=== PATIENT | male | born 1960 | race Caucasian/White ===

== ENCOUNTER 2023-11-15 07:55 | Outpatient (REF) | payer OTHER, SELFPAY ==
[2023-11-15 08:09] LABS: MANUAL DIFF FLAG NO
[2023-11-15 08:23] LABS: Basophils Absolute Auto 0.1 X10*3/uL (0.0-0.2); Basophils Percent Auto 1.1 % (0-2); Eosinophils Absolute Auto 0.4 X10*3/uL (0.0-0.4); Eosinophils Percent Auto 7.1 % (0-4); Hematocrit 45.3 % (42.0-52.0); Hemoglobin 15.9 g/dl (14.0-18.0); Imm Gran Abs Auto 0.06 X10*3/uL (0.00-0.03); Imm Gran Pct Auto 1.1 % (0.0-0.4); Lymphocytes Absolute Auto 0.7 X10*3/uL (1.2-4.9); Lymphocytes Percent Auto 12.9 % (20-40); Mean Corpuscular HGB Conc 35.1 g/dl (31.0-36.0); Mean Corpuscular Hemoglobin 31.3 pg (27.0-33.0); Mean Corpuscular Volume 89.2 fL (80.0-98.0); Mean Platelet Volume 9.2 fL (9.4-12.4); Monocytes Absolute Auto 0.6 X10*3/uL (0.1-1.2); Monocytes Percent Auto 10.1 % (2-11); Neutrophils Absolute Auto 3.7 x10*3/uL (2.0-8.3); Neutrophils Percent Auto 67.7 % (45-73); Platelet Count 255 X10*3/uL (160-400); Red Blood Count 5.08 X10*6/uL (4.60-5.80); Red Cell Distribution Width 12.1 % (11.0-16.0); White Blood Count 5.5 X10*3/uL (4.8-10.8)
[2023-11-15 08:26] LABS: Estimated Average Glucose 123 mg/dL; Hemoglobin A1c % 5.9 % (<6.0)
[2023-11-15 08:55] LABS: Alanine Aminotransferase 18 U/L (0-40); Albumin Level 4.3 g/dL (3.5-5.0); Alkaline Phosphatase 66 U/L (39-117); Anion Gap 12 (12-20); Aspartate Amino Transferase 12 U/L (5-37); Bilirubin Total 0.3 mg/dL (0.0-1.0); Blood Urea Nitrogen 11 mg/dL (9-16); Calcium 9.5 mg/dL (8.4-10.2); Carbon Dioxide 32 mmol/L (22-29); Chloride 103 mmol/L (96-108); Cholesterol 114 mg/dL (<200); Estimated Glomerular Filt Rate > 60; Glucose Fasting 154 mg/dL (60-99); HDL Cholesterol 31 mg/dL (>40); LDL Cholesterol Calculated 66 mg/dL (<100); Magnesium 2.1 mg/dL (1.6-2.6); Sodium 143 mmol/L (135-145); Total Protein 6.8 g/dL (6.5-8.0); Triglycerides 89 mg/dL (<150)
[2023-11-15 09:06] LABS: HBS Num1 0.41 mIU/mL (0-7.99); HBc Num1 0.08 S/CO (0.00-0.79); HBsAGNum1 0.28 S/CO (0.00-0.99); HIV AB/AG Nonreactive (Nonreactive); HIV Num 1 0.06 S/CO (0.00-0.99); Hepatitis B Core Antibody Nonreactive (Nonreactive); Hepatitis B Surface Antigen Negative (Negative); ~HepC Num1 0.14 S/CO (0.00-0.79); ~Hepatitis B Surface Antibody NONREACTIVE (Nonreactive); ~Hepatitis C Antibody Nonreactive (Nonreactive)
[2023-11-15 09:11] LABS: Vitamin B12 248 pg/mL (200-900)
[2023-11-15 09:13] LABS: Free T4 (Free Thyroxine) 0.81 ng/dL (0.71-1.85); Thyroid Stimulating Hormone 1.02 uIU/mL (0.32-4.0); Vitamin D 25-OH Total 20.6 ng/mL (>30)
== END 2023-11-15 07:56 | disposition home or self-care (01) ==
LOC: HO.LAB 07:55
PROVIDERS: PCP Internal Medicine; Visit Provider Psychiatry & Neurology Psychiatry
DX: Z11.4 Encounter for screening for human immunodeficiency virus [HIV] (principal); F32.2 Major depressive disorder, single episode, severe without psychotic features; F19.20 Other psychoactive substance dependence, uncomplicated
CPT/HCPCS: 36415; 80053; 80061; 82306; 82607; 83036; 83735; 84439; 84443; 85025; 86704; 86706; 86803; 87340; 87389

== ENCOUNTER → 2023-11-22 10:15 | Outpatient (BNV) | payer OTHER, SELFPAY | PROVIDERS: Visit Provider Psychiatry & Neurology Psychiatry | DX: F32.89 Other specified depressive episodes (principal); F16.10 Hallucinogen abuse, uncomplicated; F41.8 Other specified anxiety disorders; F14.10 Cocaine abuse, uncomplicated | CPT/HCPCS: 90792; 99213 ==

== ENCOUNTER 2023-11-26 08:45 | Outpatient (RCR) | payer OTHER, SELFPAY ==
[2023-11-12 13:06] VITALS: BMI 28.4
[2023-11-12 13:08] VITALS: BP 131/81; PULSE 58; TEMP 36.7
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
--- NOTE | 2023-11-14 17:41 | HO.PHP ---
Client's case was opened and reviewed in treatment team.
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
--- NOTE | 2023-11-15 10:51 | HO.PHP ---
[facility] staff member sent a fax over to [facility] central intake with Keaton's referrals for Med Management and Case Management. [facility] staff member is awaiting a call from [facility] with the scheduled appointment dates and times.
--- NOTE | 2023-11-19 09:40 | HO.PHP ---
[facility] staff member followed up with Keaton due to him not showing up to program. Keaton disclosed that on his first day, he had informed the staff that he would not be able to attend due to a DrsJeanne appointment today. [facility] staff was receptive and assessed for risk. Keaton disclosed that he is safe and will be here tomorrow. [facility] staff was receptive.
--- NOTE | 2023-11-20 12:55 | HO.PHP ---
Late entry: [facility] staff member contacted Bridgette through [facility] to gather appointment dates and times for Keaton. Keaton's intake appointment is scheduled on December 02, 2023 at 10 AM at the [facility] Office with Hilda Anderson. Keaton's med management appointment is December 24, 2023 at 9 AM at the [facility] office with Amber Rebollar.
--- NOTE | 2023-11-22 21:49 | HO.PHPPROGNO ---
Subjective Subjective Date of Service: 11/22/23 Reason For Visit: bipolar Interim History: Patient seen for follow-up. He recently started on the duloxetine, denies any adverse effects. He doesn't know if it is a coincidence but has not been experiencing any pain since starting on the medication earlier in the week. He is still getting some muscle spasms and is amenable to increasing potassium intake (will eat more bananas) and Mg supplementation. He reports his mood is still depressed, but feels he is doing well, feeling more hopeful. He says he has been benefiting from the program. He denies any SI. Sleep and appetite are improving. Will plan to bump up dose of duloxetine tonight. Medication Compliance: Yes Side effects from medications: No Attending Groups: Yes Review of Systems Acute medical concerns: No Mental Status Exam Mental Status Exam Narrative: Alert, oriented, in no acute distress. Calm, cooperative, engaged. No psychomotor agitation or neurovegetative retardation. Eye contact maintained. Mood depressed, affect variable.. Speech normal. Thought process linear, coherent. Thought content related to stressors, denies hopelessness,SI or HI. No paranoia or delusional content elicited. No evidence of psychosis. Insight and judgment impaired. Diagnostics Vital Signs (24Hr): BMI result Body Mass Index 28.4 Assessment & Plan Assessment & Plan (1) Bipolar affect, depressed: Qualifiers: Current episode severity: unspecified Qualified Code(s): F31.30 - Bipolar disorder, current episode depressed, mild or moderate severity, unspecified Status: Inactive Code(s): F31.30 - Bipolar disorder, current episode depressed, mild or moderate severity, unspecified (2) Cocaine abuse: Status: Acute Code(s): F14.10 - Cocaine abuse, uncomplicated (3) Phencyclidine abuse: Status: Acute Code(s): F16.10 - Hallucinogen abuse, uncomplicated (4) Other specified anxiety disorders: Status: Acute Code(s): F41.8 - Other specified anxiety disorders Plan increase Cymbalta to 20 mg BID continue other regular medications will review lab work w patient next time - hyperglycemia w borderline HbA1c - will encourage lifestyle changes and further follow-up with primary care. HIV, Hep status negative mild vitamin D deficiency - will encourage patient to start 5000 IU qd vitamin D for 2 months, and then lower to 2000 IU qd continue to monitor Patient educated on: diagnosis, medication risk/benefits and substance abuse Informed Consent: understands Reason for contiued partial hosp. stay Substantial Risk for: inability to function, rapid decompensation and med/psych decompensation Certification I certify that partial hospital treatment is medically necessary due to the symptoms and problems resulting from the patient's mental illness and the failure to treat the patient at the partial hospital level of care would likely result in the patient requiring inpatient psychiatric care which could not be prevented at a less intensive level of care. Total time managing care of this patient today __30__ minutes. Discharge Plan Discharge Attending provider: Corie Calhoun Additional Instructions: Keaton's intake appointment is scheduled on December 02, 2023 at 10 AM at the [facility] Office with Hilda Anderson. Keaton's med management appointment is December 24, 2023 at 9 AM at the [facility] office with Amber Rebollar. Medications: New duloxetine 20 mg capsule,delayed release(DR/EC) 20 mg PO BID Qty: 20 0RF Changed nicotine (polacrilex) [Nicorette] 2 mg gum 2 mg buccal Q2H PRN (Reason: Nicotine Cravings) Qty: 100 0RF No Action atorvastatin 20 mg tablet 20 mg PO DAILY omeprazole 20 mg capsule,delayed release(DR/EC) 20 mg PO QAM Patient Comments: Educated patient about taking this medication in the morning 30 minutes prior to a meal as prescribed. hydroxyzine HCl 25 mg tablet 25 mg PO DAILY PRN (Reason: Anxiety) hydrochlorothiazide 25 mg tablet 25 mg PO DAILY Patient Comments: Patient stated he takes at night. Educated patient about taking this medication in the morning as prescribed. zolpidem 10 mg tablet 10 mg PO BEDTIME PRN (Reason: Insomnia) Stand Alone Forms: Patient Portal Discharge page
--- NOTE | 2023-11-25 16:25 | HO.PHP ---
At roughly 12:00, business writer met with pt to discuss extending his time at [facility] to work on more structure and supports. Pt reports he will not be able to stay past his discharge date due to upcoming appts. Pt would like to discharge as scheduled, Saturday11/26/23. Reports he has plans to go to a work training program that begins the following day, Saturday11/27/23, in [place], [place] at 8 am and says it will meet every Saturday or for several weeks. Pt reports he then has a network specialist appt on at 1pm to assess for his upcoming surgery which he says will be scheduled any day within the next 2 weeks, depending on the network specialist report. Pt also states he has a therapy appt on Nov.30 and an appt with his med provider on and other upcoming health appts that will be scheduled following the cardiology report so feels he needs to prepare himself and be available. Pt agreed he needs more structure and sobriety support but currently wants to focus on his upcoming surgery. Pt declined info to attend AA mtgs in the community, declined info on [facility] but was open to attending [facility] in person. Pt was provided with 2 in-person meeting times and locations and the contact info for [email or web address]. Pt reports he will try to attend. Pt encouraged to return to [facility] after his surgery should he begin to isolate, have increased sx of depression and/or need support to prevent relapse. Pt appreciative and agreed.
--- NOTE | 2023-11-26 23:03 | HO.PHPPROGNO ---
Subjective Subjective Date of Service: 11/26/23 Reason For Visit: bipolar Interim History: Patient seen for follow-up, he's completed PHP and will be discharged at the end of the program today. He reports groups have been great , he feels he gained from his experience here and has learned a lot. He reports feeling motivated...ready for the next step in my journey . He lists a number of tasks and appointments he has coming up. He will be going to some agency to get job training and is hoping to get his drivers license back. He reports having financial issues he needs to address. He reports taking the duloxetine 20 mg twice a day, every day. He denies any adverse effects and feels it is helping his mood. He reports his mood stability at a 6 out of 10, which improved from a 2 or 3 out of 10 on admission.He is aware he is still on a low dose of the duloxetine and should anticipate his provider further titrate the dose, especially if his depression and anxiety are not fully treated. He will be following up with a med provider at the end of the month. He denies any helplessness, hopelessness or SI. Denies any aggressive ideation or HI. He denies any alcohol or substance use. He denies any urges or cravings to use. Medication Compliance: Yes Side effects from medications: No Attending Groups: Yes Review of Systems Acute medical concerns: No Mental Status Exam Mental Status Exam Narrative: Alert, oriented, in no acute distress. Calm, cooperative, engaged. No psychomotor agitation or neurovegetative retardation. Eye contact maintained. Mood improved, affect variable, brighter.. Speech normal. Thought process linear, coherent. Thought content related to stressors, denies hopelessness or SI or HI. No paranoia or delusional content elicited. No evidence of psychosis. Insight and judgment impaired. Diagnostics Vital Signs (24Hr): BMI result Body Mass Index 28.4 Assessment & Plan Assessment & Plan (1) Depressive disorder, not elsewhere classified: Status: Acute Code(s): F32.89 - Other specified depressive episodes (2) Phencyclidine abuse: Status: Acute Code(s): F16.10 - Hallucinogen abuse, uncomplicated (3) Other specified anxiety disorders: Status: Acute Code(s): F41.8 - Other specified anxiety disorders (4) Cocaine abuse: Status: Acute Code(s): F14.10 - Cocaine abuse, uncomplicated Plan Discharge from [facility] continue current medications will defer further medication management to outpatient provider Lab work was reviewed Med provider appointment scheduled for Dec 24 Patient educated on: diagnosis, medication risk/benefits and substance abuse Informed Consent: understands Reason for contiued partial hosp. stay Substantial Risk for: stable for discharge Certification I certify that partial hospital treatment is medically necessary due to the symptoms and problems resulting from the patient's mental illness and the failure to treat the patient at the partial hospital level of care would likely result in the patient requiring inpatient psychiatric care which could not be prevented at a less intensive level of care. Total time managing care of this patient today _30___ minutes. Discharge Plan Discharge Attending provider: Corie Calhoun Additional Instructions: Keaton's intake appointment is scheduled on December 02, 2023 at 10 AM at the [facility] Office with Hilda Anderson. Keaton's med management appointment is December 24, 2023 at 9 AM at the [facility] office with Amber Rebollar. Medications: Continued atorvastatin 20 mg tablet 20 mg PO DAILY omeprazole 20 mg capsule,delayed release(DR/EC) 20 mg PO QAM Patient Comments: Educated patient about taking this medication in the morning 30 minutes prior to a meal as prescribed. hydroxyzine HCl 25 mg tablet 25 mg PO DAILY PRN (Reason: Anxiety) hydrochlorothiazide 25 mg tablet 25 mg PO DAILY Patient Comments: Patient stated he takes at night. Educated patient about taking this medication in the morning as prescribed. zolpidem 10 mg tablet 10 mg PO BEDTIME PRN (Reason: Insomnia) duloxetine 20 mg capsule,delayed release(DR/EC) 20 mg PO BID Qty: 28 0RF Changed nicotine (polacrilex) [Nicorette] 2 mg gum 2 mg buccal Q2H PRN (Reason: Nicotine Cravings) Qty: 100 0RF Stand Alone Forms: Patient Portal Discharge page
== END 2023-11-26 23:59 | disposition home or self-care (01) ==
LOC: HO.PHPA 08:45
PROVIDERS: Visit Provider Psychiatry & Neurology Psychiatry
DX: F41.8 Other specified anxiety disorders (principal); F31.30 Bipolar disorder, current episode depressed, mild or moderate severity, unspecified; F16.10 Hallucinogen abuse, uncomplicated; F14.10 Cocaine abuse, uncomplicated; Z79.899 Other long term (current) drug therapy
CPT/HCPCS: 90791; 90853

== ENCOUNTER 2024-04-08 09:19 | Outpatient (AMB) | payer OTHER, SELFPAY ==
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
[2024-04-08 09:23] VITALS: BP 122/70; PULSE 68; RESP 16; O2SAT 98; BMI 31.5
== END 2024-04-08 10:12 | disposition home or self-care (01) ==
PROVIDERS: PCP Internal Medicine; Visit Provider Psychiatry & Neurology Neurology
DX: R26.9 Unspecified abnormalities of gait and mobility (principal); R29.6 Repeated falls
CPT/HCPCS: 99204

== ENCOUNTER → 2024-04-08 09:19 | Outpatient (BNVA) | payer OTHER, SELFPAY | PROVIDERS: PCP Internal Medicine; Visit Provider Psychiatry & Neurology Neurology | DX: R26.9 Unspecified abnormalities of gait and mobility (principal); R29.6 Repeated falls | CPT/HCPCS: 99202 ==

== ENCOUNTER 2024-04-08 10:13 | Outpatient (REF) | payer OTHER, SELFPAY ==
[2024-04-08 19:24] LABS: TSH reflex Free T4 0.11 uIU/mL (0.32-4.0)
[2024-04-08 19:38] LABS: Folate 17.6 ng/mL (> or = 4.0); Vitamin B12 335 pg/mL (200-900)
[2024-04-08 20:10] LABS: Free T4 (Free Thyroxine) 0.98 ng/dL (0.71-1.85)
[2024-04-13 15:47] LABS: Vitamin D 25-OH, D2 <4 ng/mL; Vitamin D 25-OH, D3 14 ng/mL; Vitamin D 25-OH, Total 14 ng/mL (30-100)
== END 2024-04-08 10:14 | disposition home or self-care (01) ==
LOC: HO.HKASLDS 10:13
PROVIDERS: Visit Provider Psychiatry & Neurology Neurology
DX: R26.9 Unspecified abnormalities of gait and mobility (principal); R29.6 Repeated falls
CPT/HCPCS: 36415; 82306; 82607; 82746; 84439; 84443

== ENCOUNTER 2024-07-31 08:36 | Outpatient (REF) | payer OTHER, SELFPAY ==
--- NOTE | ~2024-07-31 | MR_ITS ---
EXAMINATION: MR BRAIN WITHOUT CONTRAST CLINICAL INFORMATION: Repeated falls. COMPARISON: None available. TECHNIQUE: MRI of the brain was obtained using routine sequences without contrast. FINDINGS: No focal restricted diffusion is demonstrated to suggest acute or subacute cerebral ischemia. No evidence of acute or chronic hemorrhagic products on heme-sensitive imaging. Scattered periventricular and deep white matter T2 FLAIR hyperintensities consistent with mild underlying microangiopathy. The ventricles are normal in morphology and size. No abnormal mass effect. No midline shift. Normal appearance of the pituitary gland. Normal positioning of the cerebellar tonsils. Normal arterial and venous vascular flow voids are present. Normal, homogeneous marrow signal. Moderate degenerative spondyloarthropathy of the visualized upper cervical spine. Mild mucosal thickening of the paranasal sinuses. Mild rightward nasal septal deviation. No signal abnormalities within the mastoids. MR/MR head/brain wo con IMPRESSION: 1. No acute intracranial abnormalities. 2. Mild underlying microangiopathy. Electronically signed by: Tariq Nunn DO 09/21/2024 09:19 AM JOSELUIS
== END 2024-07-31 08:37 | disposition home or self-care (01) ==
LOC: HO.MRI 08:36
PROVIDERS: PCP Internal Medicine; Visit Provider Psychiatry & Neurology Neurology
DX: R29.6 Repeated falls (principal); R26.9 Unspecified abnormalities of gait and mobility
CPT/HCPCS: 70551

== ENCOUNTER 2024-09-10 09:00 | Outpatient (RCR) | payer OTHER, SELFPAY ==
--- NOTE | 2024-07-30 15:51 | MHC.PT.EP ---
[facility] [place] Office [place] Office [place] Office [address] [place] [address] [phone] F: [phone] F: [phone] F: [phone] F: [phone] Physical Therapy Plan of Care Date of Evaluation: 07/30/24 Date of Surgery: n/a Diagnosis: unspecified abnormalities of gait and mobility Assessment: Patient is a 63 year old male presenting to PT with referral for abnormalities of gait and balance. Pt reports onset of pain began over 1 year ago due to insidious onset. He presents today with impairments in balance, strength, gait mechanics. Pt's current occupation is disabled, with baseline physical activities including ambulating, ADLs. 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 Clinical presentation today is most consistent with signs and sx associated with abnormalities of gait and balance and pt will benefit from skilled PT 2 week x 4 weeks to address the following problems and impairments noted upon evaluation: balance, strength, gait mechanics. These problems limit the patient with the following functional activities: ADLs, ambulating, stair negotiation. The prescribed treatment plan of care is medically necessary. Co-morbidities of T2DM, hx cancer were identified and taken into considerations of plan of care. Pt was educated on HEP, role of PT, prognosis, POC. Frequency and Duration: The patient will be seen 2 x week x 4 weeks Short Term Goals: Pt will demonstrate ability to perform tandem stance on foam with min to no sway in 2 weeks. Pt will demonstrate improved hip MMT strength by 1/3 grade in 2 weeks for improved lumbopelvic stability. Group Home Goals: Pt will demonstrate improved LEFI score by 9 points in 4 weeks for improved functional mobility. Pt will demonstrate improved DGI score by 3 points in 4 weeks for reduced risk of falls. Pt will demonstrate improved TUG score by 2 seconds in 4 weeks for reduced risk of falls. Treatment Plan: Modalities to reduce pain, spasms and effusion. Manual therapy to restore motion and function. Therapeutic exercise to improve strength and flexibility. Neuromuscular re-education for posture and balance. Therapeutic activities to return to functional activities of daily living. Electronically signed by: Nafisa Govea, PT, DPT, ATC Please sign and return to therapist. Thank you for your referral.
--- NOTE | 2024-09-10 09:40 | MHC.PT.EP ---
[facility] [place] Office [place] Office [place] Office [address] [place] [address] [phone] F: [phone] F: [phone] F: [phone] F: [phone] Physical Therapy Plan of Care Date of Evaluation: 07/30/24 Date of Surgery: n/a Diagnosis: unspecified abnormalities of gait and mobility Assessment: Patient is a 63 year old male presenting to PT with referral for abnormalities of gait and balance. Pt reports onset of pain began over 1 year ago due to insidious onset. He presents today with impairments in balance, strength, gait mechanics. Pt's current occupation is disabled, with baseline physical activities including ambulating, ADLs. 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 Clinical presentation today is most consistent with signs and sx associated with abnormalities of gait and balance and pt will benefit from skilled PT 2 week x 4 weeks to address the following problems and impairments noted upon evaluation: balance, strength, gait mechanics. These problems limit the patient with the following functional activities: ADLs, ambulating, stair negotiation. The prescribed treatment plan of care is medically necessary. Co-morbidities of T2DM, hx cancer were identified and taken into considerations of plan of care. Pt was educated on HEP, role of PT, prognosis, POC. Frequency and Duration: The patient will be seen 2 x week x 4 weeks Short Term Goals: Pt will demonstrate ability to perform tandem stance on foam with min to no sway in 2 weeks. IMPROVED Pt will demonstrate improved hip MMT strength by 1/3 grade in 2 weeks for improved lumbopelvic stability. 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 MET Pt will demonstrate improved DGI score by 3 points in 4 weeks for reduced risk of falls. IMPROVED Pt will demonstrate improved TUG score by 2 seconds in 4 weeks for reduced risk of falls. MET Treatment Plan: Modalities to reduce pain, spasms and effusion. Manual therapy to restore motion and function. Therapeutic exercise to improve strength and flexibility. Neuromuscular re-education for posture and balance. Therapeutic activities to return to functional activities of daily living. Electronically signed by: Nafisa Govea, PT, DPT, ATC Please sign and return to therapist. Thank you for your referral.
== END 2024-09-10 09:40 | disposition home or self-care (01) ==
LOC: HO.PTCHIC 09:00
PROVIDERS: PCP Internal Medicine; Visit Provider Psychiatry & Neurology Neurology
DX: R26.9 Unspecified abnormalities of gait and mobility (principal); R29.6 Repeated falls
CPT/HCPCS: 97110; 97112; 97161

== ENCOUNTER 2024-10-09 13:19 | Outpatient (AMB) | payer OTHER, SELFPAY ==
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
--- OUTSIDE RECORDS SUMMARY | 2024-10-09 13:21 | XMS_ITS | Data Portability ---
Author Organization [place] - [facility], Allergy Address [address] [place] [phone] Care Team Providers Care Cancer Program Coordinator Name Role Phone IAN BRAVO Primary Care Provider [phone] Assessment Encounter Date Assessment Date Assessment LastModified by Organization Details LastModified Time 03/12/2024 03/12/2024 See ultra high frequency audiogram for results [email or web address] Not available 03/12/2024 14:18:48 09/15/2024 09/15/2024 Patient presents for evaluation of the ears and hearing after completing chemotherapy. Otologic exam unrevealing. Audiometric testing demonstrates stability of his bilateral hearing loss. There is asymmetry at 6000 and 8000 Hz, but it is stable. Word recognition remains excellent at 100% bilaterally. Reassurance provided therein. We discussed that he likely would perceive no benefit from amplification at this stage, and he does agree. Reviewed he should continue with annual audiometric testing and should call sooner with any perceived change. [email or web address] Not available 09/15/2024 09:56:59 Plan of Treatment Reminders Order Date Submit Date Provider Last Modified By Organization Details Last Modified Time Details Appointments None record ed. Lab None record ed. Referral None record ed. Procedures None record ed. Surgeries None record ed. Imaging None record ed. Medication Orders None record ed. Patient TargetsNo targets recorded. Patient InstructionsNo instructions recorded. Reason for Referral None Reported. Results Created Date Observation Date Name Description Value Unit Range Abnormal Flag Note LastModifiedBy Organization Detail LastModifiedTime 06/17/2011/07/2023 imagi ng/di agnos tic resul t No observ ation record ed. [email or web address] Not Available 01:16:20 06/17/20 24 11/07/2023 imagi ng/di agnos tic resul t No observ ation record ed. [email or web address] Not Available 01:16:23 06/17/20 24 11/17/2019 imagi ng/di agnos tic resul t No observ ation record ed. [email or web address] Not Available 01:17:20 06/17/20 24 12/17/2023 imagi ng/di agnos tic resul t No observ ation record ed. [email or web address] Not Available 01:17:23 06/17/20 24 12/17/2023 imagi ng/di agnos tic resul t No observ ation record ed. [email or web address] Not Available 01:17:34 06/17/20 24 01/28/2024 imagi ng/di agnos tic resul t No observ ation record ed. [email or web address] Not Available 01:17:42 06/17/20 24 02/21/2024 imagi ng/di agnos tic resul t No observ ation record ed. [email or web address] Not Available 01:17:49 06/17/20 24 03/12/2024 imagi ng/di agnos tic resul t No observ ation record ed. [email or web address] Not Available 01:18:00 06/17/20 24 08/14/2023 imagi ng/di agnos tic resul t No observ ation record ed. [email or web address] Not Available 01:18:38 06/17/20 24 02/21/2024 audio gram No observ ation record ed. [email or web address] Not Available 01:19:54 09/16/20 audio gram No observ ation record ed. [email or web address] Not Available 08/29 09:41:08 Result Notes None recorded. Problems Name Problem SNOMED Code Status Onset Date Resolution Date Notes Provider Name and Address Organization Details Recorded Time Oropharyn geal dysphagia 83773209 Active 2022 Dysphagia , oropharyn geal phase; Note: Date Diagnosed : 3 3:32 PM (R13.12) Not Available [facility] 4 02:43:45 Polyp of vocal cord or larynx 129664111 Active 2018 Polyp of vocal cord and larynx; Note: Date Diagnosed : 08/28/2019 9:53 AM (J38.1) Not Available [facility] 4 02:43:48 Closed fracture of nasal bones 72639841 Active 2023 Fracture of nasal bones, initial encounter for closed fracture; Note: Date Diagnosed : 10/29/2023 12:22 PM (S02.2XXA ) Not Available [facility] 4 02:43:52 Dysphonia 99695926 Active 2018 Hoarsenes s; Note: Date Diagnosed : 08/28/2019 9:48 AM (R49.0) Not Available [facility] 4 02:43:49 Tinnitus of left ear 97925087314 06 Active 2017 Tinnitus, left ear; Note: Date Diagnosed : 07/14/2018 10:47 AM (H93.12) Not Available [facility] 4 02:43:51 Paralysis of larynx 42021719 Active 2022 Paralysis of vocal cords and larynx, unilatera l; Note: Date Diagnosed : 3 8:20 AM (J38.01) Not Available [facility] 4 02:43:46 Tobacco user 728954514 Active 2018 Tobacco use; Note: Date Diagnosed : 08/28/2019 9:48 AM (Z72.0) Not Available [facility] 4 02:43:45 Sensorine ural hearing loss of bilateral ears 827011333 Active 2023 JILLIAN STEWART, SIMBA [address] [address], [address] , [place] - [facility] 4 14:14:16 Sensorine ural hearing loss of bilateral ears 227456923 Active 2023 JILLIAN STEWART, AUD [address] [address], [place], [address] , [place] - [facility] 14:14:46 Problem Notes None recorded. Procedures Surgical History Date Name Laterality Status Provider Name and Address Organization Details Recorded Time 09/15/20 24 Air & Speech Audio with Tymps (35879, 54516 & 42704) completed LUDWIN EVERETT, AUD 100 [facility] [address], [place], [address], [place] - [facility] 09/15/2024 09:25:49 03/12/20 24 Air only Audio (16541) completed JILLIAN STEWART, AUD 100 [facility],[address] [address], [place], [address], [place] - [facility] 03/12/2024 14:13:25 03/12/20 24 OAE (distortion product, limited - 12868) completed JILLIAN STEWART, AUD 100 [facility],[address] [address], [place], [address], [place] - [facility] 03/12/2024 14:14:00 03/12/20 24 Tympanometry (93569) completed JILLIAN STEWART, AUD 100 [facility],[address] [address], [place], [address], [place] [facility] 03/12/2024 14:13:42 03/12/20 24 SRT & Speech Recognition (96602) completed JILLIAN STEWART, AUD 100 [facility],[address] [address], [place], [address], [place] [facility] 03/12/2024 14:13:37 Imaging Results Imaging Date Name Status LastModified by Organiz ation Details LastModified Time 11/07/2023 imaging/diagno stic result completed Information not available 06/17/2024 01:16:20 11/07/2023 imaging/diagno stic result completed Information not available 06/17/2024 01:16:23 11/17/2019 imaging/diagno stic result completed Information not available 06/17/2024 01:17:20 12/17/2023 imaging/diagno stic result completed Information not available 06/17/2024 01:17:23 12/17/2023 imaging/diagno stic result completed Information not available 06/17/2024 01:17:34 01/28/2024 imaging/diagno stic result completed Information not available 06/17/2024 01:17:42 02/21/2024 imaging/diagno stic result completed Information not available 06/17/2024 01:17:49 03/12/2024 imaging/diagno stic result completed Information not available 06/17/2024 01:18:00 08/14/2023 imaging/diagno stic result completed Information not available 06/17/2024 01:18:38 02/21/2024 audiogram completed Information not available 06/17/2024 01:19:54 09/16/2024 audiogram completed Information n ot available 09/16/2024 09:41:08 Procedure Notes None recorded. Medical Equipment None Reported. Allergies No known drug allergies Medications Name Sig Start Date Stop Date Status Note LastModified by Organization Details LastModified Time cyclobenz aprine 10 mg tablet active Medicati on ID: [id number] B rand Name: cyclobepuneet zaprine Send Method: E-Prescr ibed Sub s Allowed: subs OK Medic ationGen ericName : cycloben zaprine Not Available Not Available Not Available metformin 500 mg tablet TAKE 1 TABLET BY MOUTH EVERY DAY WITH A MEAL FOR 90 DAYS active Not Available Not Available No t Available atorvasta tin 80 mg tablet TAKE 1 TABLET BY MOUTH EVERY DAY active Not Available Not Available No t Available acetamino phen 325 mg tablet active Not Available Not Available No t Available atorvasta tin 20 mg tablet active Medicati on ID: [id number] B rand Name: atorvast atin Sen d Method: E-Prescr ibed Sub s Allowed: subs OK Medic ationGen ericName : atorvast atin Not Available Not Available Not Available atorvasta tin 10 mg tablet 10/29 completed Medicati on ID: [id number] D uration Value: 30 Brand Name: atorvast atin Sen d Method: E-Prescr ibed Sub s Allowed: subs OK Speci al Instruct ion: TAKE 1 TABLET BY MOUTH EVERY DAY Medi cationGe nericNam e: atorvast atin Not Available Not Available Not Available nicotine (polacril ex) [address] 2 MG BUCCALLY EVERY 2 HOURS NEEDED FOR NICOTINE CRAVINGS 09/15 completed Not Available Not Available Not Available senna 8.6 mg tablet active Not Available Not Available No t Available meloxicam 15 mg tablet active Medicati on ID: [id number] B rand Name: meloxica m Send Method: E-Prescr ibed Sub s Allowed: subs OK Medic ationGen ericName : meloxica m Not Available Not Available Not Available prochlorp erazine maleate 10 mg tablet TAKE 1 TABLET (10 MG TOTAL) BY MOUTH EVERY 6 (SIX) HOURS NEEDED FOR NAUSEA AND VOMITING active Not Available Not Available No t Available ondansetr on 8 mg disintegr ating tablet TAKE 1 TABLET BY MOUTH EVERY 8 HOURS NEEDED FOR NAUSEA active Not Available Not Available No t Available lorazepam 0.5 mg tablet 10/29 completed Medicati on ID: [id number] D uration Value: 30 Brand Name: lorazepa m Send Method: E-Prescr ibed Sub s Allowed: subs OK Speci al Instruct ion: TAKE 1 TABLET BY MOUTH EVERY DAY NEEDED FOR SLEEP Me dication GenericN sandy: lorazepa m Not Available Not Available Not Available tamsulosi n 0.4 mg capsule 10/29 completed Medicati on ID: [id number] D uration Value: 30 Brand Name: tamsulos in Send Method: E-Prescr ibed Sub s Allowed: subs OK Speci al Instruct ion: TAKE ONE CAPSULE BY MOUTH EVERY DAY AT BEDTIME Medicati onGeneri cName: tamsulos in Not Available Not Available Not Available doxycycli ne monohydra te 100 mg capsule 09/15 completed Not Available Not Available Not Available dexametha sone 4 mg tablet PLEASE SEE ATTACHED FOR DETAILED DIRECTIO NS active Not Available Not Available No t Available lidocaine 5 % topical patch APPLY 1 PATCH EVRY 24 HOURS PPLY FOR 12 HOURS ON THEN 12 HOURS OFF 09/15 completed Not Available Not Available Not Available hydrochlo rothiazid e 12.5 mg capsule 10/29 completed Medicati on ID: [id number] D uration Value: 30 Brand Name: hydrochl orothiaz louie Send Method: E-Prescr ibed Sub s Allowed: subs OK Speci al Instruct ion: TAKE ONE CAPSULE BY MOUTH EVERY DAY Medi cationGe nericNam e: hydrochl orothiaz louie Not Available Not Available Not Available docusate sodium 100 mg capsule active Medicati on ID: [id number] B rand Name: docusate sodium S end Method: E-Prescr ibed Sub s Allowed: subs OK Medic ationGen ericName : docusate sodium Not Available Not Available Not Available omeprazol e 20 mg capsule,d elayed release TAKE 1 CAPSULE BY MOUTH EVERY DAY 30 MINUTES BEFORE MORNING MEAL FOR 90 DAYS active Not Available Not Available No t Available folic acid 1 mg tablet TAKE 1 TABLET BY MOUTH EVERY DAY active Not Available Not Available No t Available hydroxyzi ne HCl 25 mg tablet TAKE 1 TABLET BY MOUTH EVERYDAY AT BEDTIME active Not Available Not Available No t Available hydrochlo rothiazid e 25 mg tablet TAKE 1 TABLET BY MOUTH EVERY DAY IN THE MORNING FOR 90 DAYS 09/15 completed Not Available Not Available Not Available gabapenti n 100 mg capsule TAKE 2 CAPSULES (200 MG TOTAL) BY MOUTH EVERY NIGHT AT BEDTIME. active Not Available Not Available No t Available zolpidem 10 mg tablet TAKE 1 TABLET BY MOUTH EVERYDAY AT BEDTIME active Not Available Not Available No t Available lisinopri l 2.5 mg tablet TAKE 1 TABLET BY MOUTH EVERY DAY FOR 90 DAYS active Not Available Not Available No t Available naproxen 500 mg tablet TAKE 1 TABLET BY MOUTH EVERY 12 HOURS WITH FOOD OR MILK NEEDED active Not Available Not Available No t Available Ventolin HFA 90 mcg/actua tion aerosol inhaler TAKE 2 PUFFS BY MOUTH EVERY 4 TO 6 HOURS NEEDED active Not Available Not Available No t Available calcipotr iene 0.005 % topical ointment APPLY TO AFFECTED AREAS OF PSORIASI S ON THE LEGS TWICE DAILY active Not Available Not Available No t Available oxycodone 5 mg tablet TAKE 1 TABLET BY MOUTH EVERY 12 HOURS NEEDED FOR PAIN (POSTOPE RTIVE PAIN). 09/15 completed Not Available Not Available Not Available escitalop joshua 20 mg tablet 10/29 completed Medicati on ID: [id number] D uration Value: 30 Brand Name: yann powers oxalate Send Method: E-Prescr ibed Sub s Allowed: subs OK Speci al Instruct ion: TAKE 1 TABLET BY MOUTH EVERY DAY Medi cationGe nericNam e: escrachaelo lyndonm oxalate Not Available Not Available Not Available cyclobenz aprine 5 mg tablet TAKE 1 TABLET AT BEDTIME NEEDED ORALLY ONCE A DAY 4 DAYS 09/15 completed Not Available Not Available Not Available duloxetin e 20 mg capsule,d elayed release TAKE 1 CAPSULE BY MOUTH TWICE A DAY active Not Available Not Available No t Available Symbicort 160 mcg-4.5 mcg/actua tion HFA aerosol inhaler TAKE 2 PUFFS BY MOUTH TWICE A DAY IN THE MORNING AND IN THE EVENING active Not Available Not Available No t Available OptiChamb er Clotilde C spacer TAKE DIRECTED active Not Available Not Available No t Available Incruse Ellipta 62.5 mcg/actua tion powder for inhalatio n INHALE 1 PUFF BY INHALATI ON ROUTE EVERY DAY AT THE SAME TIME EACH DAY active Not Available Not Available No t Available OneTouch Delica Plus Lancet 33 gauge USE TO CHECK BLOOD SUGAR, IN VITRO, DAILY DX: E11.9 90 DAYS active Not Available Not Available No t Available Vitals Date Recorded Body height Body mass index (BMI) Body weight Provider Name and Address Organization Details Last Updated DateTime 09/15/2024 172.72 cm 30.4 kg/m2 62814.47 g Klarissa Steele [place] - [facility] 09/15/2024 09:44:51 Social History None recorded. Functional Status None recorded. Mental Status None recorded. Family History Nothing Reported. Medical History No medical history recorded. Past Encounters Encounter ID Performer Location Encounter Start Date Encounter Closed Date Diagnosis/Indication Diagnosis SNOMED-CT Code Diagnosis ICD10 Code [id number] SIMBA FU [facility] [address] [address] 03/12/2024 14:09:54 03/14/2024 15:11:02 Sensorineural hearing loss of bilateral ears 312411759 H90.3 H93.12 [id number] KINSEY LOPEZ MD [facility] [place] [address] [place] [address] 09/15/2024 09:03:29 09/15/2024 09:55:28 Sensorineural hearing loss of bilateral ears 460886816 H90.3 Health Concerns Section Related Observation LastModified by Organization Detai ls LastModified Time None Recorded Concern Status LastModified by Organization Details LastModified Time None Recorded Advance Directives Directive None Recorded Payers Encounter Date Sequence Insurance Name Policy Number Policy Dutton Covered Member ID Dutton Member ID Guarantor Name 03/12/[address] [facility] PL[facility] (MEDICAID HMO) [id number] Keaton Castillo [id number] Keaton Castillo 09/15/[address] [facility] PL[facility] (MEDICAID HMO) [id number] Keaton Castillo [id number] Keaton Castillo Notes Date Note Type Note Provider Name and Address Organization Details Recorded Time 03/12/2024 text/html Re-evaluate hearing after round of chemotherapy.Cesar nt reports left tinnitus. SIMBA FU [address], [address], [facility] 03/12/2024 14:24:50 09/15/2024 text/html 63-year-old male presents for evaluation of the ears and hearing. He recently completed a course of chemotherapy. He has noticed that the hearing in the left ear seems to have declined. Fortunately, the tinnitus he was experiencing during his chemotherapy has resolved. He notes that he has no otalgia nor otorrhea. KINSEY LOPEZ MD [address], [address], [facility] 09/15/2024 19:40:06
--- OUTSIDE RECORDS SUMMARY | 2024-10-09 13:21 | XMS_ITS | Continuity of Care Document ---
Author Organization [place] - [facility], [facility] Address [address] [place] [address] Care Team Providers Care Sterile Processing Manager Name Role Phone IAN BRAVO Primary Care Provider Assessment Encounter Date Assessment Date Assessment LastModified by Organization Details LastModified Time 09/15/2024 09/15/2024 Patient presents for evaluation of [...] Abnormal Flag Note LastModifiedBy Organization Detail LastModifiedTime 09/16/20 24 audio gram No observ ation record ed. [email or web address] Not Available 08/29 09:41:08 Result Notes None recorded. Problems Name Problem SNOMED Code Status Onset Date Resolution Date Notes Provider Name and Address Organization Details Recorded Time Oropharyn geal dysphagia 21138896 Active 2022 Dysphagia , oropharyn geal phase; Note: Date Diagnosed : 3 3:32 PM (R13.12) Not Available [facility] 4 02:43:45 Polyp of vocal cord or larynx 017914386 Active 2018 Polyp of vocal cord and larynx; Note: Date Diagnosed : 08/28/2019 9:53 AM (J38.1) Not Available [facility] 4 02:43:48 Closed fracture of nasal bones 68683048 Active 2023 Fracture of nasal bones, initial encounter for closed fracture; Note: Date Diagnosed : 10/29/2023 12:22 PM (S02.2XXA ) Not Available [facility] 4 02:43:52 Dysphonia 54842365 Active 2018 Hoarsenes s; Note: Date Diagnosed : 08/28/2019 9:48 AM (R49.0) Not Available [facility] 4 02:43:49 Tinnitus of left ear 13964123701 06 Active 2017 Tinnitus, left ear; Note: Date Diagnosed : 07/14/2018 10:47 AM (H93.12) Not Available [facility] 4 02:43:51 Paralysis of larynx 98791700 Active 2022 Paralysis of vocal cords and larynx, unilatera l; Note: Date Diagnosed : 3 8:20 AM (J38.01) Not Available [facility] 4 02:43:46 Tobacco user 919608097 Active 2018 Tobacco use; Note: Date Diagnosed : 08/28/2019 9:48 AM (Z72.0) Not Available [facility] 4 02:43:45 Sensorine ural hearing loss of bilateral ears 369763871 Active 2023 JILLIAN STEWART, SIMBA 100 [facility],[address] [address], [place], [address] , [place] - [facility] 4 14:14:16 Sensorine ural hearing loss of bilateral ears 705355854 Active 2023 JILLIAN STEWART, SIMBA 100 [facility],[address] [address], [place], [address] , [facility] - [facility] 14:14:46 Problem Notes None recorded. Procedures Surgical History Date Name Laterality Status Provider Name and Address Organization Details Recorded Time 09/15/20 24 Air & Speech Audio with Tymps (12002, 81975 & 62025) completed LUDWIN EVERETT, [facility] 100 [facility],[address], [address], [facility] - [facility] 09/15/2024 09:25:49 03/12/20 24 Air only Audio (24016) completed JILLIAN STEWART, [facility] 100 [facility],[address], [address], [facility] 03/12/2024 14:13:25 03/12/20 24 OAE (distortion product, limited - 08956) completed JILLIAN STEWART, [facility] 100 [facility],[address], [address], [facility] 03/12/2024 14:14:00 03/12/20 24 Tympanometry (35765) completed JILLIAN STEWART, [facility] 100 [facility],[address], [address], [facility] 03/12/2024 14:13:42 03/12/20 24 SRT & Speech Recognition (20722) completed JILLIAN STEWART, [facility] 100 [facility],[address], [address], [facility] 03/12/2024 14:13:37 Imaging Results None recorded. Procedure Notes None recorded. Medical Equipment None Reported. Allergies No known drug allergies Medications Name Sig Start Date Stop Date Status Note LastModified by Organization Details LastModified Time cyclobenz aprine 10 mg tablet active Medicati on ID: 052189 B rand Name: nadira valles Send Method: E-Prescr ibed Sub s Allowed: [...] 20 mg tablet active Medicati on ID: [id number] B rand Name: atorvast atin Sen d Method: E-Prescr ibed Sub s Allowed: subs OK Medic ationGen ericName : atorvast atin Not Available Not Available Not Available atorvasta tin 10 mg tablet 10/29 completed Medicati on ID: [id number] D uration Value: 30 Brand Name: atorvast [...] 15 mg tablet active Medicati on ID: [id number] B rand Name: meloxica m Send Method: [...] mg tablet 10/29 completed Medicati on ID: [id number] D uration Value: 30 Brand Name: lorazepa m Send Method: E-Prescr ibed Sub s Allowed: subs OK Speci al Instruct ion: TAKE 1 TABLET BY MOUTH EVERY DAY NEEDED FOR SLEEP Me dication GenericN sandy: lorazepa m Not Available Not Available Not Available tamsulosi n 0.4 mg capsule 10/29 completed Medicati on ID: 557442 D uration Value: 30 Brand Name: tamsulos [...] mg capsule 10/29 completed Medicati on ID: [id number] D uration Value: 30 Brand Name: hydrochl orothiaz louie Send Method: E-Prescr ibed Sub s Allowed: subs OK Speci al Instruct ion: TAKE ONE CAPSULE BY MOUTH EVERY DAY Medi cationGe nericNam e: hydrochl orothiaz louie Not Available Not Available Not Available docusate sodium 100 mg capsule active Medicati on ID: [id number] B rand Name: docusate sodium S end [...] mg tablet 10/29 completed Medicati on ID: [id number] D uration Value: 30 Brand Name: yann haneym oxalate Send Method: E-Prescr ibed Sub s Allowed: subs OK Speci al Instruct ion: TAKE 1 TABLET BY MOUTH EVERY DAY Medi cationGe nericNam e: escitalo pram oxalate Not Available Not Available Not Available [...] Available No t Available OptiChamb er Clotilde [facility] spacer TAKE DIRECTED active Not Available Not [...] Updated DateTime 09/15/2024 172.72 cm 30.4 kg/m2 29993.47 g Klarissa Steele [place] - [facility] 09/15/2024 09:44:51 Social History None recorded. Functional Status None recorded. Mental Status None recorded. Family History Nothing Reported. Medical History No medical history recorded. Past Encounters Encounter ID Performer Location Encounter Start Date Encounter Closed Date Diagnosis/Indication Diagnosis SNOMED-CT Code Diagnosis ICD10 Code [id number] KINSEY LOPEZ MD [facility] of [address] [address] 09/15/2024 09:03:29 09/15/2024 09:55:28 Sensorineural hearing loss of bilateral ears 752581892 H90.3 Health Concerns Section Related Observation LastModified by Organization Detai ls LastModified Time None Recorded Concern Status LastModified by Organization Details LastModified Time None Recorded Payers Encounter Date Sequence Insurance Name Policy Number Policy Dutton Covered Member ID Dutton Member ID Guarantor Name 09/15/2024 1 [facility] PL[facility] (MEDICAID HMO) [id number] Keaton Castillo [id number] Keaton Castillo Notes Date Note Type Note Provider Name and Address Organization Details Recorded Time 09/15/2024 text/html 63-year-old male presents for evaluation of the ears and hearing. He recently completed a course of chemotherapy. He has noticed that the hearing in the left ear seems to have declined. Fortunately, the tinnitus he was experiencing during his chemotherapy has resolved. He notes that he has no otalgia nor otorrhea. KINSEY LOPEZ MD [address] [place] [address], [address], [facility] - [facility] 09/15/2024 19:40:06
[2024-10-09 13:23] VITALS: BMI 31.2
== END 2024-10-09 13:52 | disposition home or self-care (01) ==
PROVIDERS: PCP Internal Medicine; Visit Provider Psychiatry & Neurology Neurology
DX: R26.9 Unspecified abnormalities of gait and mobility (principal); R29.6 Repeated falls
CPT/HCPCS: 99214

== ENCOUNTER → 2024-10-09 13:19 | Outpatient (BNVA) | payer OTHER, SELFPAY | PROVIDERS: PCP Internal Medicine; Visit Provider Psychiatry & Neurology Neurology | DX: M48.00 Spinal stenosis, site unspecified (principal); R26.9 Unspecified abnormalities of gait and mobility; R29.6 Repeated falls | CPT/HCPCS: 99212 ==

== ENCOUNTER 2024-10-30 07:28 | Outpatient (REF) | payer OTHER, SELFPAY ==
--- NOTE | ~2024-10-30 | MR_ITS ---
CLINICAL HISTORY: M48.00 - Spinal stenosis, site unspecified MR cervical spine without gadolinium Comparison: None Normal vertebral body alignment. Multiple level broad-based degenerative disc bulge, degenerative facet and uncovertebral joint change with mild degree central canal stenosis at C4-C5. No acute fractures or pathologic bone lesions. No acute findings on limited view of the intracranial contents. No cervical fluid collections or masses. Cervical cord normal size and signal. IMPRESSION: No acute findings. This document has been electronically signed by: Stefan Mojica MD on 10/30/2024 17:55:47
--- OUTSIDE RECORDS SUMMARY | 2024-10-30 07:31 | XMS_ITS | Continuity of Care Document ---
Author Organization [place] - [facility], [facility] Address [address] [place] [id number] Care Team Providers [facility] Manager Name Role Phone IAN BRAVO Primary [...] audio gram No observ ation record ed. [email or web address] Not Available 08/29 09:41:08 Result Notes None recorded. Problems Name Problem SNOMED Code Status Onset Date Resolution Date Notes Provider Name and Address Organization Details Recorded Time Oropharyn geal dysphagia 78970644 Active 2022 Dysphagia , oropharyn geal phase; Note: Date Diagnosed : 3 3:32 PM (R13.12) Not Available [facility] 4 02:43:45 Polyp of vocal cord or larynx 616204167 Active 2018 Polyp of vocal cord and larynx; Note: Date Diagnosed : 08/28/2019 9:53 AM (J38.1) Not Available [facility] 4 02:43:48 Closed fracture of nasal bones 10563098 Active 2023 Fracture of nasal bones, initial encounter for closed fracture; Note: Date Diagnosed : 10/29/2023 12:22 PM (S02.2XXA ) Not Available [facility] 4 02:43:52 Dysphonia 46360248 Active 2018 Hoarsenes s; Note: Date Diagnosed : 08/28/2019 9:48 AM (R49.0) Not Available [facility] 4 02:43:49 Tinnitus of left ear 33072378525 06 Active 2017 Tinnitus, left ear; Note: Date Diagnosed : 07/14/2018 10:47 AM (H93.12) Not Available [facility] 4 02:43:51 Paralysis of larynx 08441101 Active 2022 Paralysis of vocal cords and larynx, unilatera l; Note: Date Diagnosed : 3 8:20 AM (J38.01) Not Available [facility] 4 02:43:46 Tobacco user 557461013 Active 2018 Tobacco use; Note: Date Diagnosed : 08/28/2019 9:48 AM (Z72.0) Not Available [facility] 4 02:43:45 Sensorine ural hearing loss of bilateral ears 254840118 Active 2023 JILLIAN STEWART, SIMBA [address] [facility],[place] [address], [place], [phone] , [place] - [facility] 4 14:14:16 Sensorine ural hearing loss of bilateral ears 489809462 Active 2023 JILLIAN STEWART, SIMBA [address] [facility],[place] [address], [place], [phone] , [facility] - [facility] 14:14:46 Problem Notes None recorded. Procedures Surgical History Date Name Laterality Status Provider Name and Address Organization Details Recorded Time 09/15/20 24 Air & Speech Audio with Tymps (30828, 84861 & 29438) completed LUDWIN EVERETT, [facility] [address] [facility],[address], [phone], [facility] - [facility] 09/15/2024 09:25:49 03/12/20 24 Air only Audio (32100) completed JILLIAN STEWART, [facility] [address] [facility],[address], [phone], [facility] 03/12/2024 14:13:25 03/12/20 24 OAE (distortion product, limited - 55324) completed JILLIAN STEWART, [facility] [address] [facility],[address], [address], [facility] 03/12/2024 14:14:00 03/12/20 24 Tympanometry (54109) completed JILLIAN STEWART, [facility] [address] [facility],[address], [address], [facility] 03/12/2024 14:13:42 03/12/20 24 SRT & Speech Recognition (74584) completed JILLIAN STEWART, [facility] [address] [facility],[address], [address], [facility] 03/12/2024 14:13:37 Imaging Results None recorded. Procedure Notes None recorded. Medical Equipment None Reported. Allergies No known drug allergies Medications Name Sig Start Date Stop Date Status Note LastModified by Organization Details LastModified Time cyclobenz aprine 10 mg tablet active Medicati on ID: 916169 B rand Name: nadira valles Send Method: [...] 20 mg tablet active Medicati on ID: [id number] B rand Name: atorvast atin Sen d Method: E-Prescr ibed Sub s Allowed: subs OK Medic ationGen ericName : atorvast atin Not Available Not Available Not Available atorvasta tin 10 mg tablet 10/29 completed Medicati on ID: [id number] D uration Value: 30 Brand Name: atorvast [...] 15 mg tablet active Medicati on ID: [id number] B rand Name: meloxica m Send Method: [...] mg tablet 10/29 completed Medicati on ID: [id number] D uration Value: 30 Brand Name: lorazepa m Send Method: E-Prescr ibed Sub s Allowed: subs OK Speci al Instruct ion: TAKE 1 TABLET BY MOUTH EVERY DAY NEEDED FOR SLEEP Me dication GenericN sandy: lorazepa m Not Available Not Available Not Available tamsulosi n 0.4 mg capsule 10/29 completed Medicati on ID: [id number] D uration Value: 30 Brand Name: tamsulos [...] mg capsule 10/29 completed Medicati on ID: [id number] D uration Value: 30 Brand Name: hydrochl orothiaz louie Send Method: E-Prescr ibed Sub s Allowed: subs OK Speci al Instruct ion: TAKE ONE CAPSULE BY MOUTH EVERY DAY Medi cationGe nericNam e: hydrochl orothiaz louie Not Available Not Available Not Available docusate sodium 100 mg capsule active Medicati on ID: [id number] B rand Name: docusate sodium S end [...] mg tablet 10/29 completed Medicati on ID: [id number] D uration Value: 30 Brand Name: yann [...] Updated DateTime 09/15/2024 172.72 cm 30.4 kg/m2 88546.47 g Klarissa Steele [place] - [facility] 09/15/2024 09:44:51 Social History None recorded. Functional Status None recorded. Mental Status None recorded. Family History Nothing Reported. Medical History No medical history recorded. Past Encounters Encounter ID Performer Location Encounter Start Date Encounter Closed Date Diagnosis/Indication Diagnosis SNOMED-CT Code Diagnosis ICD10 Code [id number] KINSEY LOPEZ MD [facility] [address] [address] 09/15/2024 09:03:29 09/15/2024 09:55:28 Sensorineural hearing loss of bilateral ears 187001939 H90.3 Health Concerns Section Related Observation LastModified by Organization Detai ls LastModified Time None Recorded Concern Status LastModified by Organization Details LastModified Time None Recorded Payers Encounter Date Sequence Insurance Name Policy Number Policy Dutton Covered Member ID Dutton Member ID Guarantor Name 09/15/2024 1 [facility] [employer] (MEDICAID HMO) [id number] Keaton Castillo [id number] Keaton Castillo Notes Date Note Type Note [...] no otalgia nor otorrhea. KINSEY LOPEZ MD [address] [place] [address], [phone], [facility] - [facility] 09/15/2024 19:40:06
== END 2024-10-30 07:29 | disposition home or self-care (01) ==
LOC: HO.MRI 07:28
PROVIDERS: Visit Provider Psychiatry & Neurology Neurology
DX: M48.00 Spinal stenosis, site unspecified (principal)
CPT/HCPCS: 72141

== ENCOUNTER → 2024-10-30 07:33 | Outpatient (BNV) | payer OTHER, SELFPAY | PROVIDERS: Visit Provider Specialist | DX: M48.00 Spinal stenosis, site unspecified (principal) | CPT/HCPCS: 72141 ==

== ENCOUNTER 2025-04-07 13:52 | Outpatient (AMB) | payer OTHER, SELFPAY ==
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
[2025-04-07 14:16] VITALS: BP 144/84; PULSE 70; O2SAT 96; BMI 30.4
== END 2025-04-07 14:40 | disposition home or self-care (01) ==
LOC: HO.HSMS 13:53
PROVIDERS: PCP Internal Medicine; Visit Provider Psychiatry & Neurology Neurology
DX: R26.9 Unspecified abnormalities of gait and mobility (principal); R29.6 Repeated falls
CPT/HCPCS: 99214

== ENCOUNTER → 2025-04-07 13:52 | Outpatient (BNVA) | payer OTHER, SELFPAY | PROVIDERS: PCP Internal Medicine; Visit Provider Psychiatry & Neurology Neurology | DX: R26.9 Unspecified abnormalities of gait and mobility (principal); M54.2 Cervicalgia; R29.6 Repeated falls | CPT/HCPCS: 99212 ==

== ENCOUNTER 2025-06-24 09:00 | Outpatient (RCR) | payer OTHER, SELFPAY ==
--- NOTE | 2025-04-12 09:27 | MHC.PT.EP ---
[facility] [place] Office [place] Office [place] Office [address] [phone] F: [phone] F: [phone] F: [phone] F: [phone] Physical Therapy Plan of Care Date of Evaluation: 04/12/25 Date of Surgery: Diagnosis: cervicalgia Assessment: Patient is a 64 year old R handed male who presents with s/s consistent with cervicalgia, neck pain. He does not work at this time and is fairly sedentary per his own admission. Patient past medical history includes cancer, lung removal, low back pain/DDD, and substance abuse. Current impairments include pain, posture, ROM, strength, activity tolerance and functional mobility. Functional limitations include decreased ability to turn head, drive, sleep, lift, carry, and look up. Patient is motivated with good rehab potential. Skilled PT will address impairments and functional limitations in order to achieve goals. Frequency and Duration: The patient will be seen 2x/week for 5 weeks Short Term Goals: I with HEP - 2 weeks AROm rotation 48 b/l - 3 weeks Group Home Goals: Able to sleep undisturbed by pain - 5 weeks NPDI 8 % or less - 5 weeks Max pain with daily routine - 5 weeks Treatment Plan: Modalities to reduce pain, spasms and effusion. Manual therapy to restore motion and function. Therapeutic exercise to improve strength and flexibility. Neuromuscular re-education for posture and balance. Therapeutic activities to return to functional activities of daily living. Electronically signed by: Ez Reyes, PT Please sign and return to therapist. Thank you for your referral.
--- NOTE | 2025-08-26 12:39 | MHC.PT.DC ---
[facility] [place] Office [place] Office [place] Office [address] [place] [address] [phone] F: [phone] F: [phone] F: [phone] F: [phone] Physical Therapy Discharge Report Diagnosis: cervicalgia Date of Surgery: Date of Evaluation: 04/12/25 Date of Discharge: 07/07/25 Treatments to Date: 8 Cancellations to Date: No Shows to Date: Discharge Status: Improved Function Independent with HEP Discharge Summary: 06/24/25: pt has been feeling good overall with skilled PT. no adverse reactions. I with HEP. ROM goals met. NPDI 8%. Able to sleep without pain. d/c to HEP at this time. 05/27/25: we discussed plan to attempt 2 more visits every other week with plan to continue with HEP between visits to assess whether progress is able to be sustained with HEP. 05/20/25: pt s/s stable for the first 10 days or so. however, he started having increased tightness over the last few days. we will assess response and discern d/c vs continue next visit. 05/06/25: effectively tapering program down. no adverse reactions. pt will take 1 week for HEP then return. 04/29/25: pt progressing well. we will taper to 1x/week and increase HEP reliance. 04/27/25: pt responding well to currently program. good postural awareness and progress well symptomatically. 04/22/25: pt progressing well overall with skilled PT. reduced tissue tension and pain. 04/20/25: pt progressing well with skilled PT. no adverse reactions. reduced s/s, reduced discomfort since last visit. 04/16/25: pt has been feeling better overall with skilled PT. progressed posture. to update HEP NV. Patient is a 64 year old R handed male who presents with s/s consistent with cervicalgia, neck pain. He does not work at this time and is fairly sedentary per his own admission. Patient past medical history includes cancer, lung removal, low back pain/DDD, and substance abuse. Current impairments include pain, posture, ROM, strength, activity tolerance and functional mobility. Functional limitations include decreased ability to turn head, drive, sleep, lift, carry, and look up. Patient is motivated with good rehab potential. Skilled PT will address impairments and functional limitations in order to achieve goals. Electronically signed by: Ez Reyes, PT Please sign and return to therapist. Thank you for your referral.
== END 2025-08-26 12:39 | disposition home or self-care (01) ==
LOC: HO.PTCHIC 09:00
PROVIDERS: PCP Internal Medicine; Visit Provider Psychiatry & Neurology Neurology
DX: M54.2 Cervicalgia (principal)
CPT/HCPCS: 97110; 97140; 97162